=== PATIENT | female | born 1980 | race Caucasian/White ===

== ENCOUNTER 2021-04-30 14:43 | Emergency (ER) | payer BC, MEDICAID ==
[~2021-04-30] VITALS: Ht 152.4 cm; Wt 72.6 kg
--- NOTE | 2021-04-30 15:30 | NUR ---
PATIENT WAS MSE BY DR ALLAN IN ROOM 05A.
--- NOTE | 2021-04-30 15:35 | NUR ---
PATIENT WAS MSE BY DR ALLAN ROOM 05A.
[2021-04-30] MEDS ORDERED: TDAP DIPH,PERTUSS,TET VAC/PF 0.5 ML DISP.SYRIN IM ONE ×2 (16:00→16:04)
[2021-04-30] MEDS ORDERED: AMOX-430 PO (16:03)
[2021-04-30 16:06] VITALS: BP 122/71
== END 2021-04-30 16:08 | disposition home or self-care (01) ==
LOC: ER 14:43
DX: S61.250A Open bite of right index finger without damage to nail, initial encounter (principal); S51.051A Open bite, right elbow, initial encounter; W55.01XA Bitten by cat, initial encounter; Y92.89 Other specified places as the place of occurrence of the external cause
CPT/HCPCS: 90715; A4663